=== PATIENT | female | born 1965 | race Caucasian/White ===

== ENCOUNTER → 2017-06-01 | Outpatient (CLI) | payer OTHER ==
--- NOTE | 2017-06-01 13:55 | MM ---
Reason for exam: additional evaluation requested from abnormal screening. Last mammogram was performed 1 year and 1 month ago. Physical Findings: Nurse did not find any significant physical abnormalities on exam. MG 3D Diag Mammo W/Cad KENDALL Bilateral CC and MLO view(s) were taken. Prior study comparison: April 29, 2016, bilateral MG 3d diag mammo w/cad KENDALL. September 19, 2015, left breast MG 3d work up w/cad LT. The breast tissue is heterogeneously dense. This may lower the sensitivity of mammography. Stable benign calcifications. There is chronic nodularity bilaterally. No significant new findings when compared with previous films. These results were verbally communicated with the patient and result sheet given to the patient on 06/01/17. ASSESSMENT: Benign, BI-RAD 2 RECOMMENDATION: Routine screening mammogram of both breasts in 1 year.
== END | disposition home or self-care (01) ==
LOC: RADMAMWWP 12:33
PROVIDERS: ATTEND Family Medicine
DX: R92.8 Other abnormal and inconclusive findings on diagnostic imaging of breast (principal)
CPT/HCPCS: G0204; G0279

== ENCOUNTER → 2018-07-13 | Outpatient (CLI) | payer OTHER ==
--- NOTE | 2018-07-14 13:35 | MM ---
Reason for exam: screening (asymptomatic). Last mammogram was performed 1 year and 1 month ago. History: Took hormonal contraceptives for 10 years beginning at age 16. Physical Findings: A clinical breast exam by your physician is recommended on an annual basis and results should be correlated with mammographic findings. MG 3D Screening Mammo W/Cad Bilateral CC and MLO view(s) were taken. Prior study comparison: June 01, 2017, bilateral MG 3d diag mammo w/cad KENDALL. April 29, 2016, bilateral MG 3d diag mammo w/cad KENDALL. The breast tissue is heterogeneously dense. This may lower the sensitivity of mammography. There is no discrete abnormality. No significant changes when compared with prior studies. ASSESSMENT: Negative, BI-RAD 1 RECOMMENDATION: Routine screening mammogram of both breasts in 1 year.
== END | disposition home or self-care (01) ==
LOC: RADMAMWWP 14:41
PROVIDERS: ATTEND Internal Medicine
DX: Z12.31 Encounter for screening mammogram for malignant neoplasm of breast (principal)
CPT/HCPCS: 77063; 77067

== ENCOUNTER → 2020-08-01 | Outpatient (CLI) | payer OTHER ==
--- NOTE | 2020-08-01 16:00 | US ---
EXAMINATION TYPE: US transvaginal DATE OF EXAM: 08/01/2020 COMPARISON: NONE CLINICAL HISTORY: N92.1 Excessive and frequent menstruation with. TECHNIQUE: Transvaginal (TV). Date of LMP: 07/18/2020 EXAM MEASUREMENTS: Uterus: 9.7 x 5.1 x 6.2 cm Endometrial Stripe: 0.6 cm Right Ovary: 4.5 x 3.6 x 3.3 cm Left Ovary: not definitely seen 1. Uterus: Anteverted bulky with multiple small fibroids 2. Endometrium: wnl 3. Right Ovary: cyst measures 2.4 x 1.6 x 1.6 cm appears para ovarian 4. Left Ovary: not definitely seen 5. Bilateral Adnexa: left adnexal cystic structure measures 5.1 x 3.4 x 3.5 cm. 6. Posterior cul-de-sac: no free fluid IMPRESSION: 1. Bulky uterus with small uterine fibroids. 2. Right ovarian cyst. 3. Left ovary is not clearly identified. A large cystic structures within the expected left adnexal r egion measuring 5.1 x 3.4 x 3.5 cm.
== END | disposition home or self-care (01) ==
LOC: RADUSWWP 14:46
PROVIDERS: ATTEND Internal Medicine
DX: D25.9 Leiomyoma of uterus, unspecified (principal); N83.201 Unspecified ovarian cyst, right side
CPT/HCPCS: 76830

== ENCOUNTER → 2020-10-01 | Outpatient (CLI) | payer OTHER ==
--- NOTE | 2020-10-01 14:41 | US ---
EXAMINATION TYPE: US pelvis complete transvag DATE OF EXAM: 10/01/2020 COMPARISON: NONE CLINICAL HISTORY: N83.0 LT OVARIAN CYST. TECHNIQUE: Transvaginal (TV) and Transabdominal (TA) . Transabdominal sonographic images of the pel vis were acquired. Transvaginal sonographic images were medically necessary to better assess the fol lowing anatomy: ovaries, endometrium Date of LMP: Spotting 2 days ago, last cycle couple of months ago EXAM MEASUREMENTS: Uterus: 9.7 x 5.1 x 6,3 cm Endometrial Stripe: 0.6 cm Right Ovary: 3.6 x 2.1 x 2.1 cm Left Ovary: not visualized 1. Uterus: nabothian cysts noted, fibroid uterus largest measuring 2.1 x 1.5 x 2.0cm 2. Endometrium: wnl 3. Right Ovary: cyst measuring 2.0 x 1.7 x 1.3cm 4. Left Ovary: unable to visualize 5. Bilateral Adnexa: wnl 6. Posterior cul-de-sac: wnl IMPRESSION: Leiomyomatous change of the uterus. Simple appearing cyst right ovary.
== END | disposition home or self-care (01) ==
LOC: RADUSWWP 13:27
PROVIDERS: ATTEND Obstetrics & Gynecology
DX: N83.201 Unspecified ovarian cyst, right side (principal); D25.9 Leiomyoma of uterus, unspecified
CPT/HCPCS: 76830; 76856

== ENCOUNTER → 2020-10-13 | Outpatient (CLI) | payer OTHER ==
--- NOTE | 2020-10-14 14:22 | MM ---
Reason for exam: screening (asymptomatic). Last mammogram was performed 2 years and 3 months ago. History: Took hormonal contraceptives for 10 years beginning at age 16. Physical Findings: A clinical breast exam by your physician is recommended on an annual basis and results should be correlated with mammographic findings. MG 3D Screening Mammo W/Cad Bilateral CC and MLO view(s) were taken. Prior study comparison: July 13, 2018, bilateral MG 3d screening mammo w/cad. June 01, 2017, bilateral MG 3d diag mammo w/cad KENDALL. There are scattered fibroglandular densities. No significant changes when compared with prior studies. ASSESSMENT: Benign, BI-RAD 2 RECOMMENDATION: Routine screening mammogram of both breasts in 1 year.
== END | disposition home or self-care (01) ==
LOC: RADMAMWWP 14:25
PROVIDERS: ATTEND Internal Medicine
DX: Z12.31 Encounter for screening mammogram for malignant neoplasm of breast (principal)
CPT/HCPCS: 77063; 77067

== ENCOUNTER → 2020-10-14 | Outpatient (CLI) | payer OTHER ==
--- NOTE | 2020-10-14 21:08 | CT ---
EXAMINATION TYPE: CT pelvis wo con DATE OF EXAM: 10/14/2020 COMPARISON: CT 04/23/2014. Ultrasound 10/01/2020. HISTORY: left side ovarian mass CT DLP: 462.8 mGycm TECHNIQUE: Axial CT images of the pelvis was obtained without contrast. Coronal and sagittal reformat s were generated and reviewed. Oral contrast was administered. Automated exposure control for dose re duction was used. FINDINGS: Multiple prominent calculi filling the right renal collecting system, consistent with staghorn calcul i with the largest measuring up to 2.7 cm. There is prominence of the collecting system without overt hydronephrosis. No left hydronephrosis or nephrolithiasis. The visualized bowel loops are unremarkable. No free fluid or air seen. Bilateral ovaries are seen. T here is a 2.1 cm simple appearing right ovarian cyst, consistent with functional cyst. The urinary bl adder is unremarkable. Lobular appearance of the uterus, better characterized on prior ultrasound. Ot herwise no acute abnormality of the uterus. No acute osseous abnormality. Moderate L4-S1 spondylosis with minimal grade 1 anterolisthesis at L5-S 1. IMPRESSION: NO ACUTE ABNORMALITY OF THE PELVIS Right staghorn calculus. Incidental findings as above.
== END | disposition home or self-care (01) ==
LOC: RADCTMAIN 16:46
PROVIDERS: ATTEND Obstetrics & Gynecology
DX: N20.0 Calculus of kidney (principal)
CPT/HCPCS: 72192

== ENCOUNTER → 2023-05-04 | Outpatient (CLI) | payer OTHER ==
--- NOTE | 2023-05-04 13:46 | XR ---
EXAMINATION TYPE: XR abdomen 1V DATE OF EXAM: 05/04/2023 COMPARISON: NONE HISTORY: renal calculus TECHNIQUE: One view abdominal series FINDINGS: The osseous structures are intact. The bowel gas pattern is nonspecific. There is a staghorn calculus measuring 3.6 cm is overlying the right renal pelvis. There are 3 calyce al calcifications measuring 1.4, 1.5 and 0.7 cm. No suspicious calcifications overlying the left kidney. There are stable punctate calcifications in the pelvis which are likely vascular. Degenerative changes lower lumbar spine and mild bilateral hip arthropathy. IMPRESSION: 1. Large right-sided staghorn calculus.
== END | disposition home or self-care (01) ==
LOC: RADXRMAIN 13:13
PROVIDERS: ATTEND Urology
DX: N20.0 Calculus of kidney (principal)
CPT/HCPCS: 74018

== ENCOUNTER → 2023-06-13 | Outpatient (CLI) | payer OTHER ==
--- NOTE | 2023-06-15 14:55 | MM ---
Reason for Exam: Screening (asymptomatic). Last mammogram was performed 2 year(s) and 8 month(s) ago. Patient History: Menarche at age 12. First Full-Term at age 29. Hormonal Contraceptives for 10 years from age 16 until age 26. Risk Values: [place] 5 year model risk: 1.5%. NCI Lifetime model risk: 8.5%. Prior Study Comparison: 06/01/2017 Bilateral Diagnostic Mammogram, [facility]. 07/13/2018 Bilateral Screening Mammogram, [facility]. 10/13/2020 Bilateral Screening Mammogram, [facility]. Tissue Density: The breast tissue is heterogeneously dense. This may lower the sensitivity of mammography. Findings: Analyzed By CAD. No significant changes when compared with prior studies. No discrete abnormality. Overall Assessment: Negative, BI-RAD 1 Management: Screening Mammogram of both breasts in 1 year. A clinical breast exam by your physician is recommended on an annual basis and results should be correlated with mammographic findings. Electronically signed and approved by: Bart Hollins M.D. Radiologis
== END | disposition home or self-care (01) ==
LOC: RADMAMWWP 15:53
PROVIDERS: ATTEND Internal Medicine
DX: Z12.31 Encounter for screening mammogram for malignant neoplasm of breast (principal)
CPT/HCPCS: 77063; 77067

== ENCOUNTER → 2023-06-13 | Outpatient (CLI) | payer OTHER ==
--- NOTE | 2023-06-15 08:14 | CT ---
EXAMINATION TYPE: CT abdomen pelvis wo con DATE OF EXAM: 06/13/2023 COMPARISON: Pelvis 10/14/2020 HISTORY: 58-year-old female N2 0.0, kidney stone, gross hematuria CT DLP: 809 mGycm. Automated exposure control for dose reduction was used. TECHNIQUE: Contiguous axial scanning of the abdomen and pelvis without IV contrast. Coronal and sagit velvet reconstructions performed. FINDINGS: The heart is upper limits of normal in size of a pericardial effusion. Calcified granuloma basilar ri ght middle lobe. Lung bases clear without pleural effusion. Liver enlarged at 19.6 cm diffuse low attenuation of the hepatic parenchyma. Noncontrast appearance of the gallbladder, adrenal glands, left kidney, spleen, and pancreas show no gross abnormality. No dilated small bowel, free fluid, or free air. Incidental 1.1 cm lipoma within a left-sided jejunal loop. A few prominent mesenteric lymph nodes measuring up to 7 mm with mild cris mesentery here. Refer to axial images 67 and 68. Probably reactive/post inflammatory. Precautionary follow up can be performed in 3-6 months to ensure stability/resolution. Redemonstrated staghorn calculi on the right filling the renal collecting system measuring up to 2.7 cm. Additional right-sided renal calculi measuring 1.5 cm and 7 mm. No significant hydronephrosis. No significant stool burden. There is an oval hyperdense nodule measuring 3.3 x 1.7 cm and the right ovary. Uterus anteverted. Pos sible prominent fluid within the endocervical canal region, axial image 112. Correlate for any vagina l bleeding and with findings on Pap smear and direct visualization. Left ovary is visualized. Multipl e pelvic phleboliths. The bladder is collapsed but shows moderate circumferential wall thickening. No abnormal fluid collection the pelvis or pelvic adenopathy. Bones: Bilateral L5 pars defects with grade 1 anterolisthesis at L5-S1. Trace grade 1 retrolisthesis at L4-L5. Moderate degenerative disc disease at both these levels. IMPRESSION: 1. Redemonstrated 2.7 cm staghorn calculus filling the right renal collecting system. Additional rig ht-sided renal parenchymal calculi measuring 1.5 cm and 0.7 cm. No significant hydronephrosis. 2. Hepatomegaly at 19.6 cm with moderate to severe hepatic steatosis. Appropriate clinical manageme nt recommended. 3. Borderline sized clustered mid abdominal mesenteric lymph nodes and associated mild cris mesente ry. This is probably reactive/post inflammatory. Follow-up CT in 3-6 months to ensure stability/resol ution. 4. A 3.3 x 1.7 cm high density nodule within the right ovary probably a hemorrhagic cyst. Follow-up ultrasound in 6-8 weeks to ensure involution. 5. Prominent hypodense area along the endocervical canal. Correlate with direct visualization, Pap s mear results, and for any vaginal bleeding. 6. Moderate circumferential bladder wall thickening may be chronic for the patient. Correlate to exc lude cystitis. 7. Bilateral L5 pars defects with grade 1 anterolisthesis L5-S1.
== END | disposition home or self-care (01) ==
LOC: RADCTMAIN 16:26
PROVIDERS: ATTEND Urology
DX: N20.0 Calculus of kidney (principal); K76.0 Fatty (change of) liver, not elsewhere classified; R16.0 Hepatomegaly, not elsewhere classified; M43.17 Spondylolisthesis, lumbosacral region; N32.89 Other specified disorders of bladder; N93.9 Abnormal uterine and vaginal bleeding, unspecified; R31.0 Gross hematuria
CPT/HCPCS: 74176

== ENCOUNTER → 2023-08-23 | Outpatient (CLI) | payer OTHER ==
[2023-08-23 18:52] LABS: Basophils # (A) 0.06 X 10*3/uL (0.00-0.10); Basophils % (A) 0.9 %; Eosinophils # (A) 0.36 X 10*3/uL (0.04-0.35); Eosinophils % (A) 5.5 %; HCT 45.1 % (37.2-46.3); HGB 15.3 d/dL (12.0-15.0); Lymphocytes # (A) 2.17 X 10*3/uL (0.90-5.00); MCH 32.5 pg (27.0-32.0); MCHC 33.9 d/dL (32.0-37.0); MCV 95.8 FL (80.0-97.0); Mean Platelet Volume 9.5 FL (9.5-12.2); Monocytes # (A) 0.49 X 10*3/uL (0.20-1.00); Monocytes % (A) 7.4 %; NRBC Per 100 WBC 0 X 10*3/uL (0.00-0.01); Neutrophils # (A) 3.48 X 10*3/uL (1.80-7.70); Neutrophils % (A) 52.9 %; Platelet Count 185 X 10*3/uL (140-440); RBC 4.71 X 10*6/uL (4.10-5.20); RDW 12.1 % (11.5-14.5); WBC 6.58 X 10*3/uL (4.50-10.00)
[2023-08-24 01:05] LABS: Blood Urea Nitrogen 10.5 mg/dL (9.0-27.0); Calcium 10.5 mg/dL (8.7-10.3); Carbon Dioxide 27.9 mmol/L (21.6-31.8); Chloride 101 mmol/L (96-109); Glucose 100 mg/dL (70-110); Potassium 4.8 mmol/L (3.5-5.5); Sodium 139 mmol/L (135-145)
[2023-08-24 05:01] LABS: Appearance,Urine Clear (Clear); Bilirubin,Urine Negative (Negative); Blood,Urine Trace (Negative); Color,Urine Yellow (Yellow); Ketones,Urine Negative (Negative); Nitrite,Urine Negative (Negative); Specific Gravity,Urine 1.012 (1.001-1.030)
[2023-08-24 06:02] LABS: Bacteria,Urine None Seen (None Seen)
== END | disposition home or self-care (01) ==
LOC: LABPAT 14:38
PROVIDERS: ATTEND Urology
DX: Z01.812 Encounter for preprocedural laboratory examination (principal); N20.0 Calculus of kidney; R31.29 Other microscopic hematuria
CPT/HCPCS: 36415; 80048; 81001; 85025; 86850; 86900; 86901; 87086

== ENCOUNTER 2023-08-30 10:29 | Day surgery (SDC) | payer OTHER ==
[2023-08-26 09:38] VITALS: BMI 30.2
--- NOTE | 2023-08-30 07:52 | P.HPIHPCON ---
History of Present Illness H&P Date: 08/30/23 Chief Complaint: Right-sided renal stone This is a 58-year-old female with history of right-sided staghorn calculi. Presents today for right-sided PCNL. Aware of the risk which includes but not limited to bleeding, infection, injury to nearby organs, and potential persiste nce stone. Risk of anesthesia was also discussed with her. She understood all the risk and agreed to proceed Consent for Procedure: I have explained the operation/procedure to the patient, including the risks, benefits, side effects, alternative therapies (including not receiving the proposed treatment or service), the likelihood of the patient achieving his/her goals, and potential recuperation problems for the procedure/sedation/analgesia, as well as any blood products, if indicated. I also explained to the patient the risks, benefits and side effects of the alternatives, as well as the risks related to not receiving the proposed procedure, care, treatment, or services. Past Medical History Past Medical History: GERD/Reflux, Hearing Disorder / Deafness, Hyperlipidemia, Hypertension Additional Past Medical History / Comment(s): States mild hearing loss. History of Any Multi-Drug Resistant Organisms: None Reported Past Surgical History: Section Past Anesthesia/Blood Transfusion Reactions: No Reported Reaction, Motion Sickness Past Psychological History: Depression Smoking Status: Former smoker Past Alcohol Use History: Daily Additional Past Alcohol Use History / Comment(s): Quit smoking 3 yrs ago. 2 alcoholic drinks daily or every other day. Past Drug Use History: Marijuana Additional Drug Use History / Comment(s): Marijuana use a couple of times per week. Aware no alcohol/Marijuana use 24 hrs prior to procedure. - Past Family History Mother Family Medical History: Cancer Additional Family Medical History / Comment(s): Liver cancer, . Medications and Allergies Home Medications Medication Instructions Recorded Confirmed Type Sertraline [Zoloft] 50 mg PO DAILY 04/23/14 08/26/23 History Simvastatin [Zocor] 10 mg PO DAILY 04/23/14 08/26/23 History atenoloL [Tenormin] 50 mg PO HS 04/23/14 08/26/23 History Omeprazole [PriLOSEC] 20 mg PO HS 09/23/15 08/26/23 History Allergies Allergy/AdvReac Type Severity Reaction Status Date / Time No Known Allergies Allergy Verified 08/26/23 09:11 Surgical - Exam - General no distress, no pain - Eyes normal ocular movement, no pale - ENT normal nares, normal mucosa - Respiratory normal expansion, normal respiratory effort - Psychiatric oriented to time, oriented to person, oriented to place Assessment and Plan Assessment: OR for right-sided PCNL
[~2023-08-30 10:29] MED LIST: DEXAMETHASONE SOD PHOSPHATE 4 MG/ML 1 ML VIAL IV ONE; GENTAMICIN 120 MG in SODIUM CHLORIDE 0.9% 100 ML IVPB PRN; LIDOCAINE 1% (10MG/ML) FOR IV START INTRADERMA PRN; MIDAZOLAM 2 MG/2 ML VIAL IV PRN; ONDANSETRON 4 MG/2 ML VIAL IVP ONE
[2023-08-30] MEDS: LACTATED RINGERS 1,000 ML IV SCH (11:15)
--- NOTE | 2023-08-30 11:26 | XR ---
EXAMINATION TYPE: XR KUB DATE OF EXAM: 08/30/2023 COMPARISON: NONE HISTORY: PRE OP RENAL STONE TECHNIQUE: One view abdominal series FINDINGS: The osseous structures are intact. The bowel gas pattern is nonspecific. Lung bases are clear. Larg e right-sided staghorn calculus. Punctate calcifications in the pelvis are likely vascular. IMPRESSION: 1. Large right-sided staghorn calculus.
[2023-08-30] MEDS ORDERED: MIDAZOLAM 2 MG/2 ML VIAL IVP ONE (11:50)
[2023-08-30] MEDS ORDERED: ACETAMINOPHEN TAB 325 MG TAB PO PRN (12:17)
[2023-08-30] MEDS ORDERED: MAG HYDROX/AL HYDROX/SIMETH 30 ML CUP PO PRN (12:17)
[2023-08-30] MEDS ORDERED: ONDANSETRON 4 MG/2 ML VIAL IVP PRN ×2 (12:17→12:20)
[2023-08-30] MEDS ORDERED: MIDAZOLAM 2 MG/2 ML VIAL ONE (12:50)
[2023-08-30] MEDS ORDERED: SUCCINYLCHOLINE CHLORIDE 200 MG/10 ML VIAL IV ONE (12:50)
[2023-08-30] MEDS ORDERED: PHENYLEPHRINE 10 MG/ML 5 ML VIAL ONE (12:50)
[2023-08-30] MEDS ORDERED: LIDOCAINE 1% INJ 10MG/ML (20 ML MDV) ONE (12:50)
[2023-08-30] MEDS ORDERED: HYDROmorphone (PF) 1 MG/ML ONE (12:50)
[2023-08-30] MEDS ORDERED: KETAMINE HCL IN 0.9 % NACL 50 MG/5 ML SYRINGE ONE (12:50)
[2023-08-30] MEDS ORDERED: NEOSTIGMINE 1 MG/ML 10 ML VIAL ONE (12:50)
[2023-08-30] MEDS ORDERED: LABETALOL 5 MG/ML VIAL MDV ONE (12:50)
[2023-08-30] MEDS ORDERED: PROPOFOL 10 MG/ML 20 ML VIAL IV ONE (12:50)
[2023-08-30] MEDS ORDERED: fentaNYL (PF) 50 MCG/ML 2 ML AMP ONE (12:50)
[2023-08-30] MEDS ORDERED: GLYCOPYRROLATE 0.2 MG/ML 2 ML VIAL ONE (12:50)
[2023-08-30] MEDS ORDERED: ROCURONIUM 10 MG/ML (5 ML VIAL) IV ONE (12:50)
[2023-08-30] MEDS ORDERED: IOPAMIDOL-370 100ML BTL MISCELLANE ONE (13:32)
--- NOTE | 2023-08-30 16:19 | P.OP ---
Date of Procedure: 08/30/23 Preoperative Diagnosis: Right-sided renal stone Postoperative Diagnosis: Same Procedure(s) Performed: Right sided PCNL (>2 cm), cystoscopy, right ureteral catheterization and a nephrostomy tube placed Anesthesia: NICKIE Surgeon: Carrillo Bird Estimated Blood Loss (ml): 150 Pathology: other (right sided renal stone) Condition: stable Disposition: PACU Indications for Procedure: This is a 58-year-old female with history of right-sided staghorn calculi. Presents today for right-sided PCNL. Aware of the risk which includes but not limited to bleeding, infection, injury to nearby organs, and potential persistence stone. Risk of anesthesia was also discussed with her. She und erstood all the risk and agreed to proceed Description of Procedure: Patient brought to the operating room general anesthesia was induced. She was prepped on the OR stretcher and placed in a frog leg position. Next a cystoscope fitted 21-Algerian sheath was inserted per urethra, brief cystoscopy was performed showed no abnormality within the bladder a sensor wire was adva nced through the scope and up the right ureteral orifice. Next a 8-Algerian cone occluding catheter was passed over the wire and the wire was removed with the balloon occlusion catheter in place. Next a 16-Algerian Navarro was placed with return of clear urine, the Navarro was secured to the balloon occluding catheter. Next the patient was placed in a prone position. Right flank was prepped and draped in sterile fashion. Next access was obtained by Dr. Dutta. Please see his procedure note for that part of the procedure. After 2 wires were down the ureter next a 30-Algerian NephroMax balloon dilator was passed over the wire, and the tract was dilated under fluoroscopy. A 30-Algerian access sheath was passed over the balloon dilator. The rigid nephroscope was advanced through the access sheath. This point a large stone was encountered in the renal pelvis. Using the MotionDSP wand the stone was fragmented, stone fragments were removed using the grasper, there was additional stones in the upper pole and in the lower pole that were also fragmented and removed. At this point there was a radiopaque density at the midpole that would be visualized. I attempted to get to the stone using the rigid nephroscope but was not able to. This time we switched to the flexible cystoscope and a nephroscopy was performed which showed no additional stones within the kidney but I could still visualize that radiopaque density, at this time antegrade nephrostogram was performed it it appeared to be that the stone was within a diverticulum as there was a narrow infundibulum going into the stone, I attempted to visualize that opening but was not able to. This time for repeat nephroscopy showed no additional stones within the collecting system or injury to the collecting system, on antegrade nephrostogram there was no contrast extravasation. This time the flexible scope was removed and a 12-Algerian nephrostomy tube was passed over the wire into the renal pelvis, repeat antegrade nephroscopy was performed which showed no contrast extravasation and the nephrostomy tube was in the renal pelvis. Next the skin around the nephrostomy tube was closed using 2-0 Vicryl, and the tube was secured to the skin using 2-0 Vicryl. A sterile dressing was applied to the incision. Patient tolerated procedure well taken to recovery in stable condition
[2023-08-30] MEDS: HYDROmorphone 0.5 MG/0.5 ML SYRINGE IVP PRN ×4 (16:45→17:19)
[2023-08-30] MEDS ORDERED: KETOROLAC 15 MG/ML 1 ML VIAL IM STA (17:51)
[2023-08-30] MEDS: ACETAMINOPHEN IV (For NPO) 1,000 MG in EMPTY BAG 1 BAG IVPB ONE ×2 (17:52→18:07)
[2023-08-30] MEDS: HYDROmorphone 1 MG/ML 1 ML SYRINGE IVP PRN (20:01)
[2023-08-30] MEDS: DEXTROSE 5%-0.45% NACL 1,000 ML IV SCH (20:05)
[2023-08-30] MEDS ORDERED: ceFAZolin 1 GM in SODIUM CHLORIDE 0.9% 100 ML IVPB SCH (21:00)
[2023-08-30] MEDS ORDERED: atenoloL 50 MG TAB PO SCH (21:00)
[2023-08-30] MEDS ORDERED: PANTOPRAZOLE 40 MG TABLET PO SCH (21:00)
[2023-08-30] MEDS: HYDROcodone/APAP 5-325MG 1 EACH TAB PO PRN (21:51)
[2023-08-30] MEDS: HEPARIN SODIUM,PORCINE 5,000 UNIT/ML 1 ML VIAL SQ SCH ×2 (21:54→22:45)
[2023-08-31] MEDS: LACTATED RINGERS 1,000 ML IV SCH (03:15)
[2023-08-31] MEDS: HYDROcodone/APAP 5-325MG 1 EACH TAB PO PRN ×2 (04:06→12:45)
[2023-08-31] MEDS: DEXTROSE 5%-0.45% NACL 1,000 ML IV SCH (04:07)
[2023-08-31] MEDS: HYDROmorphone 1 MG/ML 1 ML SYRINGE IVP PRN ×2 (04:49→09:59)
--- NOTE | 2023-08-31 08:20 | FL ---
EXAMINATION TYPE: FL Perc Nephrostomy New Access DATE OF EXAM: 08/30/2023 COMPARISON: NONE HISTORY: Right renal staghorn calculus Procedure had been discussed with the patient by Dr. Bird, risks, benefits, alternatives, were di scussed and any questions were answered. Informed consent was obtained. The patient was in a semipr one position prepped and draped on the OR table in the usual sterile fashion. Utilizing a 15 cm ole th Chiba needle a single pass was made into a lower pole posterior calyx under fluoroscopic guidance. An 0.018 guidewire is passed through the needle and there was placement of a 6-Belizean catheter hitchcock th system. There was conversion to a 0.035 system was performed with passage of a guidewire into th e ureter utilizing a directional catheter. A second safety wire was placed. Remaining portion of pr ocedure performed by Dr. Bird. Approximately 4 minutes and 34 of fluoroscopy was provided. DAP 4 .16. IMPRESSION: 1. Successful intraoperative right nephrostomy prior to nephrolithotomy.
[2023-08-31] MEDS: HEPARIN SODIUM,PORCINE 5,000 UNIT/ML 1 ML VIAL SQ SCH ×2 (08:41→15:09)
[2023-08-31] MEDS ORDERED: ATORVASTATIN 10 MG TAB PO SCH (09:00)
[2023-08-31] MEDS ORDERED: SERTRALINE 50 MG TAB PO SCH (09:00)
--- NOTE | 2023-08-31 11:04 | P.DS ---
Providers Attending physician: Carrillo Bird MD Primary care physician: [facility] Course: The patient underwent a right percutaneous nephrostolithotomy by yesterday. She did relatively well overnight other than some discomfort. The bladder urine is clear. The nephrostomy tube urine is clearing. Her abdomen is soft. She'll ambulate and eat. If she does well she'll be discharged home later today with a nephrostomy tube. She will follow-up in the office next week for nephrostomy tube removal. Vital signs are stable she is afebrile. Condition is good. He'll be given a prescription of [place] and Toradol Plan - Discharge Summary Discharge Rx Participant: Yes New Discharge Prescriptions: New HYDROcodone/APAP 5-325MG [[place] 5-325] 1 tab PO Q4HR PRN #10 tab PRN Reason: Pain Ketorolac [Toradol] 10 mg PO Q6HR PRN #10 tab PRN Reason: Pain Control No Action Simvastatin [Zocor] 10 mg PO DAILY Sertraline [Zoloft] 50 mg PO DAILY atenoloL [Tenormin] 50 mg PO HS Omeprazole [PriLOSEC] 20 mg PO HS Discharge Medication List Sertraline [Zoloft] 50 mg PO DAILY 04/23/14 [History] Simvastatin [Zocor] 10 mg PO DAILY 04/23/14 [History] atenoloL [Tenormin] 50 mg PO HS 04/23/14 [History] Omeprazole [PriLOSEC] 20 mg PO HS 09/23/15 [History] HYDROcodone/APAP 5-325MG [[place] 5-325] 1 tab PO Q4HR PRN #10 tab 08/31/23 [Rx] Ketorolac [Toradol] 10 mg PO Q6HR PRN #10 tab 08/31/23 [Rx] Follow up Appointment(s)/Referral(s): Carrillo Bird MD [STAFF PHYSICIAN] - 09/05/23 (home with nephrostomy tube)
[2023-08-31 13:48] VITALS: RESP 16
[2023-08-31 14:16] VITALS: BP 146/72; PULSE 72; TEMP 98.5
== END 2023-08-31 17:07 | disposition home or self-care (01) ==
LOC: OR 10:29 → 5NMEDONC 16:19 → OR 08-31 17:07
PROVIDERS: ATTEND Urology
DX: N20.0 Calculus of kidney (principal); K21.9 Gastro-esophageal reflux disease without esophagitis; H91.90 Unspecified hearing loss, unspecified ear; E78.5 Hyperlipidemia, unspecified; I10 Essential (primary) hypertension; F32.A Depression, unspecified; F10.90 Alcohol use, unspecified, uncomplicated; F12.90 Cannabis use, unspecified, uncomplicated; Z98.890 Other specified postprocedural states; Z79.02 Long term (current) use of antithrombotics/antiplatelets; Z79.52 Long term (current) use of systemic steroids; Z79.899 Other long term (current) drug therapy; Z87.891 Personal history of nicotine dependence; Z80.9 Family history of malignant neoplasm, unspecified
CPT/HCPCS: 50081; 82365; 50432; 74018; 52281; C2628; C1769 ×3; C1894; C1729; J2250; J0330; J1644 ×2; J1100; J2710; J0690 ×3; J2405; J2001; J3010; J1580; J1170 ×3; J0131; J1885; J2704; Q9967; J2371; J1920

== ENCOUNTER → 2023-12-02 | Outpatient (CLI) | payer OTHER ==
--- NOTE | 2023-12-04 17:06 | US ---
EXAMINATION TYPE: US kidneys/renal and bladder DATE OF EXAM: 12/02/2023 COMPARISON: CT 06/13/2023 CLINICAL INDICATION: Female, 58 years old with history of N20.0 CALCULUS OF KIDNEY; Patient states sh e had surgery to remove stones on the right side 3 months ago. Frequent UTIs. EXAM MEASUREMENTS: Right Kidney: 11.2 x 4.0 x 4.8 cm Left Kidney: 11.1 x 4.7 x 4.2 cm SOIL FERTILITY SPECIALIST NOTES: *slightly limited due to overlying bowel gas and patient body habitus Right Kidney: There is a 0.8 x 0.3cm echogenic focus seen within. No hydronephrosis or masses seen. Left Kidney: No hydronephrosis or masses seen as best visualized Bladder: wnl Bilateral Jets seen: Yes Incidental echogenic hepatic parenchyma. IMPRESSION: 1. Nonobstructive 8 mm right renal stone. 2. No hydronephrosis on either side. 3. Incidental hepatic steatosis.
== END | disposition home or self-care (01) ==
LOC: RADUSWWP 15:21
PROVIDERS: ATTEND Urology
DX: N20.0 Calculus of kidney (principal); K76.0 Fatty (change of) liver, not elsewhere classified
CPT/HCPCS: 76770

== ENCOUNTER → 2023-12-02 | Outpatient (CLI) | payer OTHER ==
--- NOTE | 2023-12-02 18:38 | XR ---
EXAMINATION TYPE: XR KUB DATE OF EXAM: 12/02/2023 4:24 PM CLINICAL INDICATION:Female, 58 years old with history of N20.0 CALCULUS OF KIDNEY; [facility] COMPARISON: 08/30/2023. TECHNIQUE: One radiographic view of the abdomen was obtained. FINDINGS: The bowel gas pattern is nonspecific without dilated loops of small or large bowel. There i s no evidence for organomegaly or pneumoperitoneum. The osseous structures are intact. Perirenal ca lculus measuring up to 16 mm. Fecal material and gas are demonstrated throughout the colon and rectum . Multilevel degeneration changes of the spine. IMPRESSION: 1. Nonspecific bowel gas pattern without radiographic evidence for acute process. 2. Right renal calculus.
== END | disposition home or self-care (01) ==
LOC: RADXRMAIN 16:10
PROVIDERS: ATTEND Urology
DX: N20.0 Calculus of kidney (principal)
CPT/HCPCS: 74018

== ENCOUNTER 2023-12-16 09:51 | Day surgery (SDC) | payer OTHER ==
[2023-12-14 12:40] VITALS: BMI 30.2
[2023-12-16] MEDS: LACTATED RINGERS 1,000 ML IV ONE (11:42)
[2023-12-16] MEDS ORDERED: LACTATED RINGERS 1,000 ML IV SCH (11:44)
[2023-12-16] MEDS ORDERED: PROPOFOL 10 MG/ML 20 ML VIAL IV ONE (12:09)
[2023-12-16 12:14] VITALS: RESP 16; TEMP 98
--- NOTE | 2023-12-16 12:22 | P.PCN ---
Date of Procedure: 12/16/23 Procedure(s) Performed: BRIEF HISTORY: Patient is a 58-year-old pleasant white female scheduled for an elective colonoscopy as a part of value should of chronic diarrhea for the last 10 years duration. She has bowel movements anywhere from 5-12 a day which are loose watery in consistency but no blood or mucus in the stool PROCEDURE PERFORMED: Colonoscopy random biopsies and cold snare polypectomy. PREOPERATIVE DIAGNOSIS: Chronic diarrhea. IV sedation per Anesthesia. PROCEDURE: After informed consent was obtained, the patient, was brought into the endoscopy unit. IV sedation was administered by Anesthesia under continuous monitoring. Digital rectal examination was normal. Initially the Olympus CF-160 flexible video colonoscope was then inserted in the rectum, gradually advanced into the cecum without any difficulty. Careful examination was performed as the scope was gradually being withdrawn. Ileocecal valve and the appendiceal orifice were visualized and appeared normal. Prep was excellent. Mucosa of the cecum, ascending colon, transverse colon, descending colon, appeared normal. Random biopsies were done from ascending and descending colon to rule out microscopic/collagenous colitis. In the distal sigmoid colon there was a 5 mm sessile polyp that was removed by cold snare polypectomy. sigmoid colon, and rectum appeared normal. Retroflexion was performed in the rectum and no lesions were seen. The patient tolerated the procedure well. IMPRESSION: 5 mm; sigmoid polyp status post cold snare polypectomy Rest of the colon appeared normal RECOMMENDATIONS: Findings of this examination were discussed with the patient as well as her family. She was advised to follow with the biopsy results. If the biopsies revealed adenoma she can have a repeat colonoscopy in 5 years.. In regards to the chronic diarrhea she was advised to use [id number] Imodium 1 tablet 3 times daily before each meal as needed.
[2023-12-16 12:53] VITALS: BP 147/84; PULSE 71
== END 2023-12-16 12:57 ==
LOC: ORWHC2ENDO 09:51
PROVIDERS: ATTEND Internal Medicine Gastroenterology
DX: K63.5 Polyp of colon (principal); K52.9 Noninfective gastroenteritis and colitis, unspecified; I10 Essential (primary) hypertension; E78.5 Hyperlipidemia, unspecified; K21.9 Gastro-esophageal reflux disease without esophagitis; Z98.891 History of uterine scar from previous surgery; Z98.890 Other specified postprocedural states; Z79.899 Other long term (current) drug therapy
CPT/HCPCS: 88305; 45380; 45385; J2704

== ENCOUNTER → 2024-09-05 | Outpatient (CLI) | payer OTHER ==
--- NOTE | 2024-09-07 10:35 | MM ---
Reason for Exam: Screening (asymptomatic). Last mammogram was performed 1 year(s) and 3 month(s) ago. Patient History: Menarche at age 12. First Full-Term at age 29. Postmenopausal. Hormonal Contraceptives for 10 years from age 16 until age 26. Risk Values: Bethany 5 year model risk: 1.5%. NCI Lifetime model risk: 8.3%. Prior Study Comparison: 07/13/2018 Bilateral Screening Mammogram, [facility]. 10/13/2020 Bilateral Screening Mammogram, [facility]. 06/13/2023 Bilateral MG 3D screening mammo w/cad, [facility]. Tissue Density: The breasts are heterogeneously dense, which may obscure small masses. Findings: Analyzed By CAD. Right breast: There is no suspicious group of microcalcifications or new suspicious mass. Left breast: There is no suspicious group of microcalcifications or new suspicious mass. Overall Assessment: Negative, BI-RAD 1 Management: Screening Mammogram of both breasts in [address] [facility] will attempt to contact patient to return for supplemental views and ultrasound if indicated. Patient should continue monthly self-breast exams. A clinical breast exam by your physician is recommended on an annual basis. This exam should not preclude additional follow-up of suspicious palpable abnormalities. Note on Bethany scores and lifetime risk: 1. A Bethany score greater than 3% is considered moderate risk. If this is the case, consider specialist referral to assess eligibility for a risk reducing agent. 2. If overall lifetime risk for the development of breast cancer is 20% or higher, the patient may qualify for future screening with alternating mammogram and breast MRI. [facility], , 09/07/2024 10:25 AM. Electronically signed and approved by: Albert Madrigal DO
== END | disposition home or self-care (01) ==
LOC: RADMAMWWP 12:26
PROVIDERS: ATTEND Internal Medicine
DX: Z12.31 Encounter for screening mammogram for malignant neoplasm of breast (principal); Z78.0 Asymptomatic menopausal state; R92.333 Mammographic heterogeneous density, bilateral breasts
CPT/HCPCS: 77063; 77067